=== PATIENT | male | born 1995 | race Caucasian/White ===

== ENCOUNTER 2019-06-20 14:15 | Emergency (ER) | payer BC ==
[~2019-06-20] VITALS: Ht 180.3 cm; Wt 90.0 kg
[2019-06-20] MEDS ORDERED: LIDOcaine 1% w/epiNEPHrine 1:200,000 30ml vial IM ONE (15:15)
[2019-06-20] MEDS ORDERED: HYDR-3965 PO (15:42)
[2019-06-20 16:27] VITALS: BP 140/94
== END 2019-06-20 16:28 | disposition home or self-care (01) ==
LOC: ER 14:15
DX: S62.396A Other fracture of fifth metacarpal bone, right hand, initial encounter for closed fracture (principal); F17.220 Nicotine dependence, chewing tobacco, uncomplicated; F10.99 Alcohol use, unspecified with unspecified alcohol-induced disorder; Z88.0 Allergy status to penicillin; Z79.899 Other long term (current) drug therapy; W22.01XA Walked into wall, initial encounter; Y93.89 Activity, other specified; Y92.89 Other specified places as the place of occurrence of the external cause; Y99.8 Other external cause status; Y90.9 Presence of alcohol in blood, level not specified
CPT/HCPCS: 26605; 73120; 73130; 99284

== ENCOUNTER 2024-05-05 05:16 | Emergency (ER) | payer SELFPAY ==
[~2024-05-05] VITALS: Ht 180.3 cm; Wt 90.0 kg
[2024-05-05 05:20] VITALS: BP 159/92; PULSE 84; RESP 18; TEMP 98.3; O2SAT 97
== END 2024-05-05 07:02 | disposition left against medical advice (07) ==
LOC: ER 05:17
DX: R04.0 Epistaxis (principal); Z53.21 Procedure and treatment not carried out due to patient leaving prior to being seen by health care provider; Z88.1 Allergy status to other antibiotic agents; Z88.0 Allergy status to penicillin